=== PATIENT | male | born 1955 | race Caucasian/White ===

== ENCOUNTER → 2017-03-05 | Outpatient (CLI) | payer OTHER ==
[~2017-03-05] VITALS: Ht 188 cm; Wt 110.7 kg
[~2017-03-05] MED LIST: ALLERGY10 M1 PO; APAP650 PO; ASPIRIN325 PO; ASPIRIN81 M2 PO; CO Q-10100 MG PO; IBUPROFEN 200200 M1 PO; KEPPRA 500 MG500 M1 PO; LEVOTHYROXIN0.025 MG PO; LEVOTHYROXINE; LIPITOR40 MG PO; LOPRESSOR50 PO; MOBIC7.5 MG PO; MOTION SICKNESS50 MG PO; NAPROSYN500 MG PO; NORVASC5 MG PO; VITAMIN D2000 UNIT PO; ZYRTEC 10 MG TA10 M1 PO
--- NOTE | ~2017-03-05 | HPC ---
[facility] [place] [address] [address] [place] [address] PAIN MANAGEMENT CONSULTATION Name: XUAN LOMELI Room #: REG GOLDIE Flaquito#: [id number] Admission: 03/05/17 Attend Phys: Nick Turcios MD Discharge: Date of : 53 Report #: [id number] THIS REPORT FOR: //name// CC: Diana Turcios DATE OF SERVICE: 03/05/2017 Followup visit for lumbar radiculopathy. The patient is here today for an epidural steroid injection who was last seen on 01/02/2017. At that time, we discussed the injection for pain radiating primarily into the left lower extremity. Pain is about the same today, describes it as a 2, but at times when he is walking, it increases to an 8/10. Pain is in his left buttocks radiating down the back of his left thigh, follows an L5-S1 distribution. MEDICATIONS: Reviewed and reconciled. Meloxicam, ibuprofen, allergy medication cetirizine, Tylenol, Lipitor, CoQ10, Keppra, Lopressor, Norvasc, Synthroid, and Zyrtec. ALLERGIES: None. PHYSICAL EXAMINATION: VITAL SIGNS: Blood pressure 139/79, heart rate 60. Tenderness across the low back and positive straight leg raising is noted on the left. IMPRESSION: Lumbar radiculopathy, left L4-L5 distribution. PROCEDURE: Lumbar epidural steroid injection. DESCRIPTION OF PROCEDURE: The patient was taken to fluoroscopic suite, placed prone, skin prepped with ChloraPrep. Skin anesthetized over the L4-L5 interspace. A 20-gauge Tuohy epidural needle advanced into the epidural space with loss of resistance technique. There was no blood or CSF aspirated. A 1 mL of Omnipaque injected with spread of dye observed in the epidural space followed by 3 mL of 0.5% lidocaine. He tolerated the procedure well and was observed for 45 minutes and discharged. Followup visit planned as needed. By: [id number] Nick Turcios MD /nt
[2017-03-05 12:58] VITALS: BP 146/89
== END ==
LOC: PAIN 06:59
DX: M54.16 Radiculopathy, lumbar region (principal); F32.9 Major depressive disorder, single episode, unspecified

== ENCOUNTER → 2017-05-29 | Outpatient (CLI) | payer OTHER ==
[~2017-05-29] VITALS: Ht 190.5 cm; Wt 109.2 kg
[2017-05-29 08:25] VITALS: BP 124/62
== END | disposition home or self-care (01) ==
LOC: PAIN 06:19
DX: M54.16 Radiculopathy, lumbar region (principal)

== ENCOUNTER → 2017-08-07 | Outpatient (CLI) | payer OTHER ==
[~2017-08-07] VITALS: Ht 190.5 cm; Wt 109.1 kg
[~2017-08-07] MED LIST changes: +TRAMADOL 50 MG50 MG PO
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
[2017-08-07 11:10] VITALS: BP 122/80
== END | disposition home or self-care (01) ==
LOC: PAIN 07:04
DX: M47.896 Other spondylosis, lumbar region (principal); G89.29 Other chronic pain; M43.16 Spondylolisthesis, lumbar region; Z98.890 Other specified postprocedural states; Z79.82 Long term (current) use of aspirin; Z79.899 Other long term (current) drug therapy

== ENCOUNTER → 2017-09-04 | Outpatient (CLI) | payer OTHER ==
[~2017-09-04] VITALS: Ht 188 cm; Wt 109.8 kg
--- NOTE | ~2017-09-04 | HPC ---
[facility] [address] [place] [address] PAIN MANAGEMENT CONSULTATION Name: XUAN LOMELI Room #: REG GOLDIE AmosLolaJosefinaLola#: [id number] Admission: 09/04/17 Attend Phys: Nick Turcios MD Discharge: Date of : 53 Report #: [id number] THIS REPORT FOR: //name// CC: Diana Rivera MD DATE OF SERVICE: 09/04/2017 Followup visit for low back pain, improvement in pain radiating into the buttocks. The patient returns to pain clinic today. He is still having ongoing pain. He scores it as a 2, worse with standing and walking. I have reviewed his CAT scan. It really is not too bad, his alignment is good. He has some degenerative changes, which are mild for age, I would consider. On physical exam, he has mostly tenderness today over the left sacroiliac joint. I would consider that now to be the primary pain generator given the options and findings on his plain films as well as on his CT scan. We have talked about ways to manage his pain and considerations would probably be at this point physical therapy, perhaps some anti-inflammatory medications as tolerated or Tylenol and I would consider sacroiliac injections as diagnostic. It may also be helpful therapeutically in some patients to obtain fci relief. I gave him some tramadol to see if that was helpful for severe pain and he felt drugged, so we will not continue that. I have recommended that he can continue on some meloxicam as needed. PHYSICAL EXAMINATION: He is a burly 62-year-old pleasant, outgoing, moves from sitting to standing position without difficulty, walks with mild discomfort. Pain with forward flexion of the spine is located mostly in the sacroiliac joint. Mild DAYDAY test. IMPRESSION: Sacroiliac joint pain on the left. Lumbar spondylosis. No evidence of nerve root compression at this time on CAT scan. PLAN: Follow up as needed. Prescription written for physical therapy, which he will undergo in [place]. Evaluate and treat. <ELECTRONICALLY SIGNED> By: Nick Turcios MD 09/05/17 1322 [id number] Nick Turcios MD /nt
[2017-09-04 10:40] VITALS: BP 121/79
== END ==
LOC: PAIN 07:06
DX: M47.896 Other spondylosis, lumbar region (principal); M53.3 Sacrococcygeal disorders, not elsewhere classified